=== PATIENT | female | born 1940 ===

== ENCOUNTER 2018-01-07 18:12 | Emergency (ER) | payer MEDICARE, MEDICAID ==
[2018-01-07 18:13] VITALS: BMI 26.9
[2018-01-07 18:29] VITALS: PULSE 72; TEMP 98.9
[2018-01-07 19:52] LABS: BASO % 0.5 % (0.0-2.0); EOS # 0.1 K/uL (0.0-0.7); EOS % 3.4 % (0.0-4.0); HEMOGLOBIN 10.8 g/dL (12.0-16.0); LYMPH # 1.4 K/uL (1.0-4.3); MEAN CELL VOLUME 90.1 fl (81.0-99.0); MEAN CORPUSCULAR HEMOGLOBIN 29.5 pg (27.0-31.0); MEAN CORPUSCULAR HGB CONC 32.8 g/dL (33.0-37.0); MEAN PLATELET VOLUME 9.5 fl (7.2-11.7); MONO # 0.4 K/uL (0.0-0.8); MONO % 12.2 % (0.0-10.0); NEUT # 1.5 K/uL (1.8-7.0); NEUT % 43.9 % (50.0-75.0); RBC 3.66 Mil/uL (3.80-5.20); RED CELL DISTRIBUTION WIDTH 14.2 % (11.5-14.5); WHITE BLOOD COUNT 3.5 K/uL (4.8-10.8)
[2018-01-07 20:06] LABS: ALB/GLOB RATIO 1.5 (1.0-2.1); ALBUMIN 4.5 g/dL (3.5-5.0); ALT/SGPT 52 U/L (9-52); AST/SGOT 50 U/L (14-36); BLOOD UREA NITROGEN 24 mg/dl (7-17); CALCIUM 10.1 mg/dL (8.4-10.2); GFR AFRICAN-AMERICAN > 60; GFR NON-AFRICAN AMERICAN > 60
[2018-01-07 20:22] LABS: INR 1.1; PROTHROMBIN TIME 12.6 Seconds (9.8-13.1)
[2018-01-07 20:25] LABS: PARTIAL THROMBOPLASTIN TIME 36.4 Seconds (25.6-37.1)
--- NOTE | 2018-01-07 21:00 | ED PDOC ---
Lower Extremity Pain/Injury Time Seen by Provider: 01/07/18 19:13 Chief Complaint (Nursing): Lower Extremity Problem/Injury Chief Complaint (Provider): Lower Extremity Problem/Injury History Per: Patient History/Exam Limitations: no limitations Onset/Duration Of Symptoms: Days (x7) Current Symptoms Are (Timing): Still Present Additional Complaint(s): 77 y/o female with a PMHx of DM and HTN presents to the ED complaining of left leg swelling, onset 7 days ago. Patient states she was seen by PMD and referred her for an outpatient ultrasound of left leg. Patient states leg has appeared red as compared to the right leg. Denies injury, chest pain and shortness of breath. PMD: Ba Adamson Past Medical History Reviewed: Historical Data Vital Signs: Last Vital Signs Temp 98.9 F 01/07/18 18:22 Pulse 72 01/07/18 18:22 Resp 18 01/07/18 18:22 BP 149/72 01/07/18 18:22 Pulse Ox 97 01/07/18 18:22 - Medical History PMH: Arthritis, Diabetes, HTN, Hyperthyroidism, Hypothyroidism Denies: Chronic Kidney Disease - Surgical History Surgical History: Appendectomy, Cholecystectomy Other surgeries: Tubal Ligation, Abdominoplasty, and right foot surgery, left total knee replacement - Family History Family History: States: Unknown Family Hx - Social History Current smoker - smoking cessation education provided: No Alcohol: None Drugs: Denies - Home Medications Home Medications: Ambulatory Orders Medication Instructions Recorded Aspirin [Aspirin EC] 81 mg PO DAILY 10/02/14 Carvedilol [Coreg] 3.125 mg PO BID 10/02/14 Ergocalciferol (Vitamin D2) 50,000 unit PO Q7D 10/02/14 [Vitamin D2] Levothyroxine [Synthroid] 0.088 mg PO DAILY 10/02/14 Losartan/Hydrochlorothiazide 1 tab PO DAILY 10/02/14 [Hyzaar 100-25 Tablet] Metformin Hydrochloride/Nicki 1 tab PO BID 10/02/14 [Janumet 500 mg-50 mg] - Allergies Allergies/Adverse Reactions: Allergies Allergy/AdvReac Type Severity Reaction Status Date / Time No Known Allergies Allergy Verified 01/07/18 18:28 Review of Systems ROS Statement: Except As Marked, All Systems Reviewed And Found Negative Cardiovascular: Negative for: Chest Pain Respiratory: Negative for: Shortness of Breath Musculoskeletal: Positive for: Leg Pain (left leg swelling ) Physical Exam - Reviewed Nursing Documentation Reviewed: Yes Vital Signs Reviewed: Yes - Physical Exam Appears: Positive for: Well, Non-toxic, No Acute Distress Head Exam: Positive for: ATRAUMATIC, NORMOCEPHALIC Skin: Positive for: Normal Color, Warm, Dry Eye Exam: Positive for: Normal appearance, EOMI, PERRL ENT: Positive for: Normal ENT Inspection Neck: Positive for: Normal, Painless ROM, Supple Cardiovascular/Chest: Positive for: Regular Rate, Rhythm. Negative for: Murmur Respiratory: Positive for: Normal Breath Sounds. Negative for: Respiratory Distress Pulses-Post. Tibialis (L): 2+ Pulses-Post. Tibialis (R): 2+ Pulses-Radial (L): 2+ Pulses-Radial (R): 2+ Gastrointestinal/Abdominal: Positive for: Normal Exam, Soft. Negative for: Tenderness Back: Positive for: Normal Inspection. Negative for: L CVA Tenderness, R CVA Tenderness, Vertebral Tenderness Extremity: Positive for: Capillary Refill (> 2 seconds), Other (3+ edema in the left lower quadrant) Neurologic/Psych: Positive for: Alert, Oriented (x3). Negative for: Motor/ Sensory Deficits - Laboratory Results Result Diagrams: 01/07/18 19:45 01/07/18 19:45 - ECG O2 Sat by Pulse Oximetry: 97 (RA) Pulse Ox Interpretation: Normal Medical Decision Making Medical Decision Making: Time: 1944 Impression: 77 y/o female with a PMHx of HTN and DM presents with left leg swelling Plan: -- CMP -- CBC with differentials -- PTT -- Prothrombin Time -- Heplock Insertion -- Duplex Lower Extremity US Time: 2108 US DUPLEX RESULTS FINDINGS: Deep veins: Normal color and spectral Doppler flow. Normal compressibility. No deep vein thrombosis. Superficial veins: No thrombosis. Soft tissues: 6.9 x 3.0 x 4.8 cm complex but predominately hypoechoic lesion within popliteal fossa. IMPRESSION: 1. No evidence of DVT within LEFT lower extremity. 2. Popliteal fossa lesion. DDX: Complex Blanco's cyst, hematoma, abscess, cystic neoplasm. Clinical correlation is needed. Thank you for allowing us to participate in the care of your patient. Dictated and Authenticated by: Mark Faulkner MD 01/07/2018 9:09 PM Eastern Time ([place] & [place]) Time: 23:46 CT Left Lower Extremity with IV Contrast FINDINGS: Bones/joints: There are postoperative changes of left total knee arthroplasty. There are lucent lesions in the medial femoral condyle and metaphysis and similar smaller cystic changes of the medial tibial plateau adjacent to the arthroplasty components. Prosthetic loosening cannot be excluded, however comparison with prior postoperative CT or x-ray would be helpful to assess for stability or change. There is a moderate knee joint effusion. There is diffuse osteopenia. No acute fracture. No dislocation. Soft tissues: There is a loculated fluid collection adjacent to the posterior aspect of the gastrocnemius muscles of the upper calf with this collection measuring approximately 5.9 x 1.4 x 6.1 cm. Cannot exclude evolution of a prior hematoma in this location or other postoperative collection. Abscess is less likely. IMPRESSION: 1. There are postoperative changes of left total knee arthroplasty. 2. There are lucent lesions in the medial femoral condyle and metaphysis and similar smaller cystic changes of the medial tibial plateau adjacent to the arthroplasty components. Prosthetic loosening cannot be excluded, however comparison with prior postoperative CT or x-ray would be helpful to assess for stability or change. 3. There is a moderate knee joint effusion. 4. There is a loculated fluid collection adjacent to the posterior aspect of the gastrocnemius muscles of the upper calf with this collection measuring approximately 5.9 x 1.4 x 6.1 cm. Cannot exclude evolution of a prior hematoma in this location or other postoperative collection. Abscess is less likely. Time: 00:01 At this time patient is stable for discharge home. Diagnosis is left lower extremity hematoma; patient condition is stable. Patient is instructed to elevate extremity and to follow up with her PMD in x2 days. Scribe Attestation: Documented by Caitlin Almanza and Villa Pratt acting as a scribe for Dr. Jg Patricia MD. Provider Scribe Attestation: All medical record entries made by the Scribe were at my direction and personally dictated by me. I have reviewed the chart and agree that the record accurately reflects my personal performance of the history, physical exam, medical decision making, and the department course for this patient. I have also personally directed, reviewed, and agree with the discharge instructions and disposition. Disposition - Clinical Impression Clinical Impression: Hematoma of left lower extremity - Patient ED Disposition Is Patient to be Admitted: No - Disposition Disposition: Routine/Home Disposition Time: 00:01 Condition: STABLE Additional Instructions: DARSHAN CALL, thank you for letting us take care of you today. Your provider was Jg Patricia MD and you were treated for SWOLLEN LEFT LEG. The emergency medical care you received today was directed at your acute symptoms. If you were prescribed any medication, please fill it and take as directed. It may take several days for your symptoms to resolve. Return to the Emergency Department if your symptoms worsen, do not improve, or if you have any other problems. Please contact your doctor or call one of the physicians/clinics you have been referred to that are listed on the Patient Visit Information form that is included in your discharge packet. Bring any paperwork you were given at discharge with you along with any medications you are taking to your follow up visit. Our treatment cannot replace ongoing medical care by a primary care provider outside of the emergency department. Thank you for allowing the [facility] team to be part of your care today. If you had an X-Ray or CT scan: A Radiologist will review the ED reading if any change in treatment is needed we will contact you. If you had a blood, urine, or wound culture: It will take several days for the results, if any change in treatment is needed we will contact you. If you had an STI test: It will take 48 hours for the results. Please call after 1 week if you have not heard back. Instructions: Contusion (DC) Forms: [employer] (Amharic) Print Language: [place]
[2018-01-07] MEDS ORDERED: Sodium Chloride 0.9% 50 ML IV ONE (22:25)
[2018-01-07] MEDS ORDERED: Iohexol 300 100 ML IJ ONE (22:25)
[2018-01-08 00:11] VITALS: BP 140/80; RESP 19; O2SAT 98
--- NOTE | 2018-01-08 10:54 | CT ---
Date of service: 01/07/2018 PROCEDURE: CT OF THE LEFT KNEE WITH CONTRAST HISTORY: popliteal fossa lesion on U/S COMPARISON: Left Lower Extremity venous ultrasound examination 01/07/2018. TECHNIQUE: A volumetric CT acquisition was performed through the left knee following dynamic intravenous contrast administration. Reformatted datasets provided sagittal, axial and coronal series. Contrast Dose: Omnipaque 300, 95 cc Radiation dose:Total exam DLP = 457.67 mGy-cm. This CT exam was performed using one or more of the following dose reduction techniques: Automated exposure control, adjustment of the mA and/or kV according to patient size, and/or use of iterative reconstruction technique. FINDINGS: Patient seen to be status post total left knee arthroplasty with hardware appearing in good apparent position without overt pattern of loosening or distraction otherwise. There is a mild suprapatellar bursa effusion there is a popliteal fluid collection measuring 6.3 x 1.3 x 5.8 cm borderline enhancement. This is felt represent a Blanco's cyst though a seroma or potential abscess not completely excluded. Consider follow-up aspiration if there is clinical concern for abscess. No destructive bony process appreciated, fracture, subluxation or dislocation. IMPRESSION: 6.3 cm popliteal cyst likely reflects a Blanco's cyst. Differential diagnosis is listed above. Clinically correlate further. Consider sonographic guided cyst aspiration on therapeutic or diagnostic basis if clinically warranted. Concordant preliminary report from [facility], 01/07/2018.
--- NOTE | 2018-01-08 11:20 | US ---
Date of service: 01/07/2018 HISTORY: swelling . PRIORS: None. FINDINGS: 2-D, color and duplex Doppler analysis of the lower extremity venous circulation using routine protocol from the femoral veins through the popliteal veins. Venous compressibility: Normal. Flow and augmentation patterns: Normal. Visualized veins upper third of calf: Normal. Blanco cyst: Left popliteal fossa collection 3 x 6.9 cm. IMPRESSION: No sonographic or Doppler evidence for DVT in left lower extremity. Concordant results (preliminary interpretation) provided by [facility]. Procedure Completed: 20:24 Preliminary ([facility]) Report: Dictated and Authenticated: 21:09 Final Interpretation: 11:18 January 08, 2018.
== END 2018-01-08 00:14 | disposition home or self-care (01) ==
LOC: H.ER 18:12
DX: S80.12XA Contusion of left lower leg, initial encounter (principal); Y92.89 Other specified places as the place of occurrence of the external cause; E03.9 Hypothyroidism, unspecified; E05.90 Thyrotoxicosis, unspecified without thyrotoxic crisis or storm; E11.9 Type 2 diabetes mellitus without complications; I10 Essential (primary) hypertension; Z79.82 Long term (current) use of aspirin
CPT/HCPCS: 73701; 80053; 85025; 85610; 85730; 93971; 99282; Q9967